=== PATIENT | female | born 1935 | race Caucasian/White ===

== ENCOUNTER 2023-09-29 10:01 | Emergency (ER) | payer MEDICARE, OTHER, SELFPAY ==
[2023-09-29 10:07] VITALS: BP 172/67; PULSE 92; RESP 16; TEMP 36.6; O2SAT 99; BMI 29.6
[2023-09-29 10:20] LABS: MANUAL DIFF FLAG NO
[2023-09-29 10:24] LABS: Basophils Percent Auto 0.6 % (0-2); Eosinophils Absolute Auto 0.1 X10*3/uL (0.0-0.4); Eosinophils Percent Auto 1.7 % (0-4); Hematocrit 41.2 % (37.0-47.0); Hemoglobin 13.4 g/dl (12.0-16.0); Imm Gran Abs Auto 0.01 X10*3/uL (0.00-0.03); Imm Gran Pct Auto 0.2 % (0.0-0.4); Lymphocytes Absolute Auto 1.6 X10*3/uL (1.2-4.9); Lymphocytes Percent Auto 34.3 % (20-40); Mean Corpuscular HGB Conc 32.5 g/dl (31.0-35.0); Mean Corpuscular Hemoglobin 28.6 pg (27.0-33.0); Mean Platelet Volume 9.4 fL (9.4-12.3); Monocytes Absolute Auto 0.4 X10*3/uL (0.1-1.2); Monocytes Percent Auto 9.1 % (2-11); Neutrophils Absolute Auto 2.5 x10*3/uL (2.0-8.3); Neutrophils Percent Auto 54.1 % (45-73); Platelet Count 273 X10*3/uL (160-400); Red Blood Count 4.68 X10*6/uL (4.20-5.50); Red Cell Distribution Width 13.4 % (11.0-16.0); White Blood Count 4.6 X10*3/uL (4.8-10.8)
[2023-09-29 10:35] LABS: Anion Gap 13 (12-20); Blood Urea Nitrogen 13 mg/dL (9-16); Calcium 9.9 mg/dL (8.4-10.2); Carbon Dioxide 27 mmol/L (22-29); Chloride 105 mmol/L (96-108); Creatinine Clr Calc Pharmacy 40.3; Estimated Glomerular Filt Rate > 60; Glucose Random 113 mg/dL (60-115); Sodium 141 mmol/L (135-145)
--- NOTE | 2023-09-29 10:59 | ED.GENADULT ---
HPI - General Adult General Chief complaint: Altered Mental Status Stated complaint: Emotional distress Time Seen by Provider: 09/29/23 10:38 Source: patient Mode of arrival: ambulatory Limitations: other (poor historian ) History of Present Illness HPI narrative: 88-year-old female presents from the 3rd floor room 350, patient was sitting with her she has a history of dementia, is going into surgery and is unable to care for her while she is here in the hospital. She is acting her baseline. Dementia. Alert and oriented x3 at times confused. According to nursing upstairs she has been wandering the halls and they cannot have that on the 3rd floor. They have no family in the area that could keep her while has been has procedure so case management brought patient down to the emergency department for evaluation/well-being check. Patient has no medical complaints she is requesting to go back up to room 350 to be with her . No suicidal or homicidal ideation Related Data Home Medications Medication Instructions Recorded Confirmed amlodipine 5 mg tablet 5 mg PO DAILY 09/29/23 09/29/23 Allergies Allergy/AdvReac Type Severity Reaction Status Date / Time No Known Allergies Allergy Verified 09/29/23 10:06 [No Known Allergies*] Review of Systems Review of Systems: Constitutional : No Weight loss, No Fever, No Chills, No Fatigue, No Malaise ENT/Mouth : No sore throat, No Rhinorrhea Eyes: No Eye Pain, No Swelling, No Redness Cardiovascular : No Chest Pain, No SOB, No Dyspnea on Exertion, No Orthopnea, No Edema, No Palpitations Respiratory : No Cough, No Sputum, No Wheezing Gastrointestinal : No Nausea, No Vomiting, No Diarrhea, No Constipation, No abdominal Pain, No Hematochezia, No Melena Genitourinary : No Dysuria, No Urinary Frequency, No Hematuria, Musculoskeletal : No joint pain, No Myalgias, No Joint Swelling Skin : No Skin Lesions, No rash Neuro : No Weakness, No Numbness, No Dizziness, No Headache Psych : No Anxiety/Panic, No Depression All other systems reviewed and are negative Yes all other systems are reviewed and are negative FORMERLY [facility], [facility] Past Medical History Attestation statement: The following information was validated with the patient. Source: old records reviewed and nursing notes reviewed Social History Social History Alcohol intake: former Smoked in Last 30 Days: No Use of substances other than those prescribed or required for medical reasons: No Advance Directives: No Physical Exam ED Vital Signs: Vital Signs - 24 hr 09/30/23 15:50 09/30/23 21:16 10/01/23 06:00 Temperature 98.2 F 97.0 F 97.6 F Pulse Rate 84 75 56 Respiratory Rate 16 16 16 Blood Pressure 139/96 H 168/56 H 132/62 Pulse Oximetry 98 97 87 L Oxygen Delivery Method Room Air Room Air Room Air BMI result Body Mass Index 29.6 vss Appearance: Alert.? Oriented to person or place not time or situation? No acute distress.? Head: Normocephalic, atraumatic, no step-offs or deformities Eyes: Pupils equal, round and reactive to light.? ENT: Pharynx normal.? Neck: Normal inspection.? Neck supple.? CVS: Normal heart rate and rhythm.? Pulses normal.? Respiratory: No respiratory distress.? Breath sounds normal.? Abdomen: Soft and nontender.? Skin: Skin warm and dry.? Normal skin color.? Normal skin turgor.? Extremities: No lower extremity edema.? No calf ttp. 5/5 strength to bilateral upper and lower extremities Neuro: Oriented to person or place not time or situation No motor deficit.? No sensory deficit. CN 2-12 intact Course Reevaluation(s) Reevaluation #1: CBC with leukopenia no baseline labs to compare with. No medical complaints. Chemistry no acute electrolyte abnormalities requiring intervention. Patient well-appearing. Ua pending At this time will place patient observation to allow more time to be evaluated by Case Management. Time: 13:22 Reevaluation #2: Patient remained on physician observation overnight, no events reported by nursing. Awaiting urine specimen and case management involvement. Time: 08:23 Reevaluation #3: 10/01/2023 0806: Patient continues to be on physician observation. Patient being followed by case management. Medications Administered Generic Name Dose Route Start Last Admin Trade Name Freq PRN Reason Stop Dose Admin Amlodipine Besylate 5 mg 09/30/23 16:15 10/01/23 07:41 Amlodipine Besylate 5 Mg Tablet PO 5 mg DAILY VALDEZ Administration Protocol Medical Decision Making Medical Decision Making MDM Narrative: 88-year-old female presents for wellness check coming from room 350. Physical exam benign. Oriented to person or place not time or situation Concerns for dementia. Unlikely metabolic derangements. Will rule out electrolyte abnormalities. Plan at this time Differential Diagnosis Differential Diagnoses: The differential diagnosis associated with the presentation includes Concerns for dementia. Unlikely metabolic derangements. Will rule out electrolyte abnormalities. Admission/Observation Consideration of admission/observation: Escalation of care including admission/observation considered Lab Data MDM Lab Attestation statement: I reviewed the patient's lab results. 09/29/23 10:16 09/29/23 10:16 Labs: Lab Results 09/29/23 09/30/23 Range/Units 10:16 16:25 WBC 4.6 L (4.8-10.8) X10*3/uL RBC 4.68 (4.20-5.50) X10*6/uL Hgb 13.4 (12.0-16.0) g/dl Hct 41.2 (37.0-47.0) % MCV 88.0 (80.0-98.0) fL MCH 28.6 (27.0-33.0) pg MCHC 32.5 (31.0-35.0) g/dl RDW 13.4 (11.0-16.0) % Plt Count 273 (160-400) X10*3/uL MPV 9.4 (9.4-12.3) fL Immature Gran % (Auto) 0.2 (0.0-0.4) % Neut % (Auto) 54.1 (45-73) % Lymph % (Auto) 34.3 (20-40) % Harlan % (Auto) 9.1 (2-11) % Eos % (Auto) 1.7 (0-4) % Baso % (Auto) 0.6 (0-2) % Lymph # (Auto) 1.6 (1.2-4.9) X10*3/uL Harlan # (Auto) 0.4 (0.1-1.2) X10*3/uL Eos # (Auto) 0.1 (0.0-0.4) X10*3/uL Baso # (Auto) 0.0 (0.0-0.2) X10*3/uL Abs Immat Gran (auto) 0.01 (0.00-0.03) X10*3/uL Absolute Neuts (auto) 2.5 (2.0-8.3) x10*3/uL Absolute Nucleated RBC 0.000 (0.0-0.012) X10*3/uL Nucleated RBC % (auto) 0.0 (0.0-0.2) /100WBC Sodium 141 (135-145) mmol/L Potassium 4.0 (3.3-5.1) mmol/L Chloride 105 (96-108) mmol/L Carbon Dioxide 27 (22-29) mmol/L Anion Gap 13 (12-20) BUN 13 (9-16) mg/dL Creatinine 0.87 (0.5-1.4) mg/dL Estim Creat Clear Calc 40.3 Estimated GFR > 60 Random Glucose 113 (60-115) mg/dL Calcium 9.9 (8.4-10.2) mg/dL Urine Color Yellow Urine Appearance Cloudy Urine pH 5.5 (5.0-9.0) Ur Specific [place] 1.010 (1.005-1.025) Urine Protein Negative (Neg-Trace) mg/dL Urine Glucose (UA) Negative (Negative) mg/dL Urine Ketones Negative (Negative) mg/dL Urine Blood Trace H (Negative) Urine Nitrite Negative (Negative) Ur Leukocyte Esterase Small (1+) H (Negative) Urine RBC 0-2 (0-2) /HPF Urine WBC 11-20 H (0-5) /HPF Ur Squamous Epith Cells 11-20 (0-2) /HPF Urine Bacteria 2+ (None Seen) Hyaline Casts 3-5 (0-2) /LPF Social Determinants Patient?s care significantly limited by Social Determinants of Health including: Inadequate housing and Other Social Determinant of Health Critical Care Time Critical Care Time Critical Care Time: No Discharge Plan Discharge Clinical Impression: Dementia Patient Disposition: Still a Patient Prescriptions: No Action amlodipine 5 mg tablet 5 mg PO DAILY
--- NOTE | 2023-09-29 11:01 | PC.NURSE ---
Patients on 3rd floor, brought to ER by nurse from 3rd floor as patient was going for surgical procedure , patient stating she wants to go home. Unable to reach son. Provider aware Patient with no medical complaints, denies pain or discomfort
--- NOTE | 2023-09-29 11:32 | PC.NURSE ---
Multiple staff attempted to change patient over into hospital attire, patient declined
--- NOTE | 2023-09-29 12:58 | MHC.CM.ED ---
Patient was brought to the ER from S3. Patient's , Kd Ayoub, is currently admitted and will need a toe amp. Patient was with her on S3. However she has a history of dementia and seemed to be getting more confused. T/W spoke wt patient's son, Michael Elena, via telephone at [phone]. Michael was not aware his mother or step father were in the hospital. Situation was explained. Michael lives in [facility], works manager maritime, has school aged children and his works weekends. It would be impossible for him to care for his mother while his step father is in the hospital. Michael will speak with his to see if there is any help they can provide. CM contact info provided to Michael. VICENTE Leach Director made aware. Continue to monitor for d/c needs.
--- NOTE | 2023-09-29 14:37 | PC.NURSE ---
Patient changed into hospital attire, patient with urine and feces stained pants, toenails long and socks ripped.
[2023-09-29 17:42] VITALS: BP 174/86; PULSE 76; RESP 16; TEMP 36.9; O2SAT 98
--- NOTE | 2023-09-29 17:50 | MHC.EDTECH ---
Patient vitals taken JOSE ALBERTO Clements aware of Pt high Bp ,Patient belonings list done .
--- NOTE | 2023-09-29 19:00 | MHC.EDTECH ---
Patient ate 75 % of dinner ,drank 360 ml fluids ,Pt did try to collect urine sample ,but Patient had a bowel movement instead ,will continue to try .
[2023-09-29 19:32] VITALS: BP 157/88; PULSE 95; RESP 16; TEMP 37.1; O2SAT 98
--- NOTE | 2023-09-29 19:37 | PC.NURSE ---
Addendum entered by Dany Carrasquillo RN 09/29/23 21:05: Security camera place for safety. Original Note: Assumed care of pt. Pt brought to room in wheelchair, able to stand and ambulate to bed with steady gait. Oreitned to unit by this RN and tech, no acute distress noted at this time. Plan for preparation for night time.
[2023-09-29 20:52] VITALS: BP 142/61; PULSE 87; RESP 18; TEMP 36.7; O2SAT 96
--- NOTE | 2023-09-29 21:10 | PHA.MEDREC ---
Pharmacy Consult ? Medication Reconciliation Pharmacy has completed the medication reconciliation. Patient with dementia, currently admitted. Med rec done by claim history. Gayathri Lim, ZoltanD
[2023-09-30 06:20] VITALS: BP 112/54; PULSE 63; TEMP 35.7; O2SAT 95
[2023-09-30 15:50] VITALS: BP 139/96; PULSE 84; RESP 16; TEMP 36.8; O2SAT 98
--- NOTE | 2023-09-30 16:09 | PC.NURSE ---
PT'S WAS BROUGHT VIA W/C TO VISIT. PLEASANT CONVERSATION, PT SMILING WITH .
--- NOTE | 2023-09-30 16:26 | MHC.EDTECH ---
This pct assumed care of pt at 1500 ,vitals taken ,Pt was assisted to use the bathroom ,urine sample collected and sent to lab ,this pct walk around with patient then Patient was set up to do some coloring ,snack offer ,But Pt refused .
[2023-09-30 16:44] LABS: Appearance Urine Cloudy; Color Urine Yellow; Glucose Urine UA Negative (Negative); Leukocyte Esterase Urine Small (1+) (Negative); Nitrite Urine Negative (Negative); PH 5.5 (5.0-9.0); UMIC TRIGGER UACC YES; Urine Blood Trace (Negative); Urine Ketones Negative (Negative); Urine Protein Negative (Neg-Trace)
[2023-09-30 16:49] LABS: Bacteria Urine 2+ (None Seen); UACC Culture Trigger YES
[2023-09-30 16:57] LABS: RBC Urine 0-2 /HPF (0-2)
--- NOTE | 2023-09-30 17:00 | MHC.EDTECH ---
Patient name band is attached on the food of the bed and in Pt chart ,because Pt is removing bracelet .
[2023-09-30] MEDS: amLODIPine Besylate 5 MG TABLET PO (17:42)
[2023-09-30 21:16] VITALS: BP 168/56; PULSE 75; RESP 16; TEMP 36.1; O2SAT 97
--- NOTE | 2023-09-30 21:22 | MHC.EDTECH ---
Patient was assisted to bathroom ,sponge bath given ,clean gown on ,teeth brush ,lotion apply and hair come ,Pt has a snack ,Pt in bed watching television .
--- NOTE | 2023-09-30 22:37 | PC.NURSE ---
Acquired care at 1900. Pt was standing in front of the nurses station looking for her . Yakut speaking only. Confused about situation. Easily redirectable. Offered a bed with warm blanket. given some snack at bedtime. Pt stayed in bed. With video monitoring. Steady to feet. But keeps on wandering around.
--- NOTE | 2023-10-01 03:25 | PC.NURSE ---
Pt has ambulated to bathroom with one assist multiple times throughout the night. Pt has steady gait and strong balance. Pt is confused but redirectable back into bed.
[2023-10-01 06:00] VITALS: BP 132/62; PULSE 56; RESP 16; TEMP 36.4; O2SAT 87
--- NOTE | 2023-10-01 06:13 | MHC.EDTECH ---
Pt is asleep ,void twice during the night ,vitals taken ,no apparent distress noted .
[2023-10-01] MEDS: amLODIPine Besylate 5 MG TABLET PO (07:41)
[2023-10-01 08:34] VITALS: BP 144/62; PULSE 65; RESP 16; TEMP 36.5; O2SAT 97
--- NOTE | 2023-10-01 16:08 | MHC.EDTECH ---
Patient given shower and total bed changed
[2023-10-01 17:35] VITALS: BP 149/70; PULSE 77; RESP 16; TEMP 37.1; O2SAT 97
[2023-10-01 20:32] VITALS: BP 144/67; PULSE 70; RESP 16; TEMP 37.1; O2SAT 95
[2023-10-01] MEDS: OLANZapine 5 MG TABLET PO (21:10)
--- NOTE | 2023-10-01 21:11 | PC.NURSE ---
Assumed care of pt at 19:00. Pt is alert, orientation vague though able to assess pt is alert to herself and , disoriented to situation and place. Hx dementia. Confused and anxious, impulsive and frequently getting OOB despite bed alarm and camera in place for safety. Pt frequently stating she is attempting to find her . Pt redirected and reoriented often. Covering provider notified of anxiety. Zyprexa ordered and given, effectieness pending. VSS. No distress noted. Pt denies pain. Toileted with assistance. Will continue to monitor for remainder of handbook writer's scheduled care.
[2023-10-01] MEDS: LORazepam 2 MG/ML VIAL 1 MG IM (22:08)
--- NOTE | 2023-10-01 22:10 | PC.NURSE ---
Patient remains anxious and agitated despite reorienting, pt frequently stating I don't know why I am here ! Pt expressing frustration towards staff on reorienting further. Nursing soft sugar supervisor notified staff sitting with patient in order to keep her calm, as pt continues refusing to stay in bed. Covering provider notified. IM ativan ordered and given. Pt eventually agreeable to assistance back into bed. Effectiveness of med pending at this time.
--- NOTE | 2023-10-01 23:19 | PC.NURSE ---
Patient observed on rounding resting in bed appearing comfortable and without anxiety after ativan given. Breathing even and unlabored without distress. High falls measures continue with in-room camera. Handoff report given 23:00 to oncoming RN.
--- NOTE | 2023-10-02 02:15 | PC.NURSE ---
Pt sleeping at the bedside in no apparent distress. Breaths are even regular and unlabored with equal chest rises. Monitoring is ongoing.
--- NOTE | 2023-10-02 03:45 | PC.NURSE ---
Pt awake, calm and cooperative, requesting assistance to the bathroom. Pt ambulatory, gait unsteady. Reports using a cane at home at times. After using the bathroom assistance provided returning to the bedside. Pt returned to sleep.
[2023-10-02 05:42] VITALS: BP 167/78; PULSE 64; RESP 20; TEMP 36.1; O2SAT 97
[2023-10-02] MEDS: amLODIPine Besylate 5 MG TABLET PO (10:01)
--- NOTE | 2023-10-02 12:12 | MHC.CM.PN ---
EMR REVIEWED, PT'S AND ANESTHESIOLOGY FACULTY NOT MEDICALLY CLEARED FOR DC, PT WILL REMAIN IN ED OVERFLOW UNTIL IS MEDICALLY CLEARED FOR DC HOME.
[2023-10-02 14:00] VITALS: BP 135/80; PULSE 94; RESP 20; TEMP 36.4; O2SAT 97
--- NOTE | 2023-10-02 18:41 | PC.NURSE ---
Patient is confused and very forgetful. Keeps asking to contact her who is admitted on Med-surge floor s/p toe amputation. Patient needs to be reminded often that her knows she is in ED overflow. Patient requested to go up and see her - she can be easily redirected by reminding her about her 's situation. Has been setting bed alarm off while trying to use commode.
[2023-10-02 21:58] VITALS: BP 146/60; PULSE 81; RESP 21; TEMP 36.4; O2SAT 97
--- NOTE | 2023-10-02 23:37 | PC.NURSE ---
Food and drink provided to pt as requested.
[2023-10-03 06:38] VITALS: BP 126/50; PULSE 66; RESP 18; TEMP 36.6; O2SAT 95
[2023-10-03] MEDS: amLODIPine Besylate 5 MG TABLET PO (10:57)
[2023-10-03 11:03] VITALS: BP 156/73; PULSE 72; O2SAT 96
[2023-10-03 13:48] VITALS: BP 167/81; PULSE 75; RESP 18; TEMP 36.1; O2SAT 98
--- NOTE | 2023-10-03 14:30 | MHC.CM.ED ---
Patient remains in ER overflow. Patient has a history dementia. Lives at home with her . is currently admitted due to toe amp. Patient is supposed to go back to the OR. No family or friends are able to care for the patient. Patient will not qualify for STR. Haylee Adams CM director aware. Continue to monitor for d/c needs.
[2023-10-03 15:39] VITALS: BP 163/73; PULSE 95; RESP 16; TEMP 36.3; O2SAT 98
--- NOTE | 2023-10-03 17:41 | PC.NURSE ---
PT ALERT, ORIENTED TO SELF, PLEASANTLY CONFUSED. DENIES PAIN, VSS. PT WALKING AROUND UNIT WITH CLOSE VISUAL SUPERVISION. PT ASKING FOR HER THROUGHOUT THE SHIFT, PT EASILY REDIRECTED. MAGAZINES AND PUZZLES OFFERED. MEDS GIVEN DOCUMENTED.
--- NOTE | 2023-10-03 18:30 | MHC.EDTECH ---
Patient ate 70 % of dinner ,drank 240 ml fluids .
[2023-10-03 20:24] VITALS: BP 170/85; PULSE 87; RESP 16; TEMP 36.1; O2SAT 97
--- NOTE | 2023-10-03 20:27 | MHC.EDTECH ---
JOSE ALBERTO Ochoa is aware of pt high blood Pressure .
--- NOTE | 2023-10-03 20:28 | MHC.EDTECH ---
Patient void and was given a sponge bath ,tooth brush .
--- NOTE | 2023-10-03 20:50 | MHC.EDTECH ---
At 2042,this television script writer was charting on computer ,Pt was standing next to me ,Pt then lift up her left leg ,and patient became off balance ,i say patient leaning backward ,I held her hand and lower her, And we both sat on floor ,RN Gabriela aware and Ed stone hand Also aware ,This Pct sat with Patient until sitter came to be with her .
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
[2023-10-03 21:00] VITALS: BP 117/78; PULSE 86; RESP 16; TEMP 36.1; O2SAT 98
--- NOTE | 2023-10-03 23:33 | PC.NURSE ---
pt sitting comfortably in recliner reading a magazine with sitter at bedside
--- NOTE | 2023-10-04 | MHC.EDTECH ---
Patient awake sitting in recliner chair ,chair alarm on and sitter at bedside .
[2023-10-04 05:49] VITALS: BP 122/83; PULSE 60; RESP 16; TEMP 36.2; O2SAT 97
--- NOTE | 2023-10-04 05:51 | MHC.EDTECH ---
Patient was up all night ,fell asleep at 0415 am ,vitals taken and is stable ,no apparent distress noted .
--- NOTE | 2023-10-04 08:32 | PC.NURSE ---
assumed care of pt at 0700. pt currently sleeping, bed alarm on, sitter camera on, and 1:1 sitter at bedside for pt safety. rr even/unlabored. plan of care ongoing.
--- NOTE | 2023-10-04 08:40 | PC.NURSE ---
Pt alert and oriented to self. Resting at the bedside with camera monitor and 1:1 sitter. On report this nurse informed that pt is not sleeping at night and went to sleep around 0415 this morning and slept on and off through out the morning. MLP notified.No new orders received.
[2023-10-04 10:49] VITALS: BP 137/71; PULSE 64; RESP 18; TEMP 36.6; O2SAT 97
[2023-10-04] MEDS: amLODIPine Besylate 5 MG TABLET PO (10:51)
[2023-10-04] MEDS: cefuroxime axetiL 250 MG TABLET PO (10:51)
[2023-10-04] MEDS: Acetaminophen 325 MG TABLET 650 MG PO (10:51)
[2023-10-04 14:00] VITALS: BP 134/63; PULSE 60; RESP 16; TEMP 36.1; O2SAT 95
--- NOTE | 2023-10-04 15:03 | MHC.CM.ED ---
Patient remains in ER overflow. Patient's is still admitted on S3. It appears patient will be going home tomorrow 10/05. Anticipate patient will return home with him at that time. Continue to monitor for d/c needs.
[2023-10-04 16:00] VITALS: BP 108/60; PULSE 60; RESP 16; TEMP 36.3; O2SAT 98
--- NOTE | 2023-10-04 16:25 | PC.NURSE ---
pt consumed breakfast and lunch with no issues. pt has been compliant, resting in bed, sleeping on and off. pt offers no complaints ann. rr even/unlabored. 1:1 sitter at bedside and sitter camera in place for pt safety.
--- NOTE | 2023-10-04 18:05 | MHC.EDTECH ---
Patient walk to bathroom with assistance ,void large amount of urine ,then back to bed ,Pt ate 100 % of meal drank 240 ml fluids .
[2023-10-04 20:06] VITALS: BP 131/72; PULSE 89; RESP 16; TEMP 36.4; O2SAT 100
[2023-10-05 08:30] VITALS: BP 142/75; PULSE 69; RESP 16; TEMP 35.9; O2SAT 100
[2023-10-05] MEDS: amLODIPine Besylate 5 MG TABLET PO (08:37)
--- NOTE | 2023-10-05 08:40 | PC.NURSE ---
PT IS A/O X 2, DID NOT KNOW THE YEAR. SPEACH CLEAR. DENIES ANY PAIN/DISC AT THIS TIME. 1:1 SITTER AT BEDSIDE, ALSO CAMERA IS WITHIN PLACE.
[2023-10-05 14:00] VITALS: BP 129/57; PULSE 80; RESP 18; TEMP 36.3; O2SAT 94
--- NOTE | 2023-10-05 16:08 | MHC.EDTECH ---
Patient walked standby assist to the bathroom by this CCT. Patient voided without difficulty and walked back to bed. Assisted back into bed, bed alarm on.
--- NOTE | 2023-10-05 18:07 | PC.NURSE ---
PT IS A/O X 2. PLEASANT AND APPRECIATIVE OF CARE. BED ALARM ON AND CAMERA IN PLACE. PT MADE MULTIPLE ATTEMPTS TO GET OOB BUT IS EASILY REDIRECTED
--- NOTE | 2023-10-05 18:11 | MHC.EDTECH ---
Patient walked to bathroom standby assist by this CCT. Patient voided without issue and walked back to bed. Assisted back into bed, resting comfortably. Bed alarm and camera on.
[2023-10-05 22:00] VITALS: BP 150/74; PULSE 77; RESP 14; TEMP 36.4; O2SAT 97
[2023-10-06 06:54] VITALS: RESP 18
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
[2023-10-06 10:10] VITALS: BP 136/72; PULSE 88; RESP 14; TEMP 36.4; O2SAT 95
[2023-10-06 14:00] VITALS: BP 103/73; PULSE 88; RESP 16; TEMP 36.4; O2SAT 98
[2023-10-06 14:40] VITALS: BP 103/73; PULSE 88; O2SAT 98
--- NOTE | 2023-10-06 15:09 | MHC.CM.ED ---
Patient remains in ER overflow. Patient's was supposed to d/c home today. However he requires STR. Physical therapy eval for home safety completed. Physical therapy rec STR. Patient has Medicare and [facility] Unic[employer]. Patient has not had an inpatient stay. However, [facility] will cover 80% of stay. Referral broadcasted at this time. Continue to monitor for d/c needs.
--- NOTE | 2023-10-06 16:44 | PC.NURSE ---
Pt A/Ox2-3 but with extreme short term memory, constantly asking if her is picking her up. Educated pt that she was not yet discharged and we would let her know when the time comes. Impulsive, attempts to get out of bed to get dressed and go home . Steady gait. PT ally completed and rec STR.
[2023-10-06 19:36] VITALS: BP 166/75; PULSE 85; RESP 16; TEMP 36.7; O2SAT 98
[2023-10-06 22:00] VITALS: BP 138/80; PULSE 83; RESP 18; TEMP 36.4; O2SAT 96
[2023-10-07 06:00] VITALS: BP 154/74; PULSE 55; RESP 18; TEMP 36.5; O2SAT 97
[2023-10-07 08:46] VITALS: BP 126/63; PULSE 60; RESP 16; TEMP 36.5; O2SAT 99
[2023-10-07] MEDS: amLODIPine Besylate 5 MG TABLET PO (08:48)
--- NOTE | 2023-10-07 09:57 | MHC.CM.ED ---
Addendum entered by Ijeoma Hsu 10/07/23 10:03: Left a message for patient's son, Michael at [phone] with discharge plan. Original Note: Patient remains in ER overflow. [facility] is able to offer a bed to patient her . Per VICENTE Leach LPN, Kd is agreeable. Met with patient and interpreter for the deaf. Patient agreeable to [facility] with her . HCP completed, signed and witnessed. Original given to patient. Copy placed in chart. Geraldine MCDONOUGH booked. Med nec with chart. Patient, Pamela Yi RN and Nadia SURVEY AND MAPPING TECHNICIAN aware. Continue to monitor for d/c needs.
== END 2023-10-07 11:18 ==
PROVIDERS: Physician Assistant; Emergency Provider Student in an Organized Health Care Education/Training Program
DX: F03.90 Unspecified dementia, unspecified severity, without behavioral disturbance, psychotic disturbance, mood disturbance, and anxiety (principal); Z72.89 Other problems related to lifestyle; Z63.79 Other stressful life events affecting family and household
CPT/HCPCS: 36415; 80048; 81001; 85025; 87086; 97161; 99285; J2060